=== PATIENT | male | born 1980 | race Caucasian/White ===

== ENCOUNTER 2017-09-17 16:21 | Outpatient (RCR) | payer BC ==
[~2017-09-17 16:21] MED LIST: BISO1TAB4 PO
[2017-09-17 17:50] LABS: SEMEN VOLUME 4.4 ML (1.5-5.0)
== END 2017-09-21 | disposition home or self-care (01) ==
LOC: LAB 16:21
PROVIDERS: ATTEND Obstetrics & Gynecology
DX: Z31.41 Encounter for fertility testing (principal)
CPT/HCPCS: 89320

== ENCOUNTER 2018-01-16 09:43 | Emergency (ER) | payer BC ==
[~2018-01-16] VITALS: Ht 167.6 cm; Wt 86.2 kg
--- OUTSIDE RECORDS SUMMARY | 2018-01-16 09:47 | XMS REPORT | Continuity of Care Document ---
Author Author [facility] Organization [facility] Address Unknown Phone Unavailable Allergies Active Description Code Type Severity Reaction Onset Reported/Identified Relationship to Patient Clinical Status Yes LISINOPR LISINOPR Unknown HIVES,SWELLING 03/13/2013 Medications There is no data. Problems Date Dx Coded Attending Type Code Diagnosis Diagnosed By 03/13/2013 MARCEL FLORES MD Ot 401.9 HYPERTENSION NOS 03/13/2013 MARCEL FLORES MD Ot 530.81 ESOPHAGEAL REFLUX 03/13/2013 MARCEL FLORES MD Ot 995.1 ANGIONEUROTIC EDEMA 09/21/2017 REBECA SPENCE DO Ot Z31.41 ENCOUNTER FOR FERTILITY TESTING 10/11/2017 REBECA SPENCE DO Ot Z31.41 ENCOUNTER FOR FERTILITY TESTING 11/22/2017 REBECA SPENCE DO Ot Z31.41 ENCOUNTER FOR FERTILITY TESTING Procedures There is no data. Results There is no data. Encounters ACCT No. Visit Date/Time Discharge Status Pt. Type Provider Facility Loc./Unit Complaint [id number] 11/22/2017 00:27:00 11/22/2017 23:59:59 CLS Preadmit REBECA SPENCE DO [facility] LAB Z31.41 [id number] 09/17/2017 16:21:00 09/21/2017 00:01:00 DIS Outpatient REBECA SPENCE DO [facility] LAB Z31.41 [id number] 03/13/2013 00:25:00 03/13/2013 09:15:00 DIS Inpatient MARCEL FLORES MD [facility] 4TH ANGIOEDEMA AND IDIOPATHIC HIVES
[2018-01-16] MEDS ORDERED: OMEP20CA12 (09:56)
[2018-01-16] MEDS ORDERED: LIDOCAINE 2% VISCOUS 15 ML UDC PO ONE (10:00)
[2018-01-16] MEDS ORDERED: ANTACID SUSP 30 ML UDC (MYLANTA) PO ONE (10:00)
--- NOTE | 2018-01-16 10:50 | ED General ---
General Chief Complaint: Chest Wall/Rib Pain Stated Complaint: CHEST PAIN Nursing Triage Note: TO ROOM FOR LAST SEVERAL DAYS HAS HAD PAIN IN THE EPIGASTRIC AREA REPORTS IT IS INTERMITTEN AT TIMES FEELING LIKE HE HAS A KNOT IN HIS THROAT Nursing Sepsis Screen: No Definite Risk Source of Information: Patient Exam Limitations: No Limitations History of Present Illness Date Seen by Provider: Jan 16, 2018 Time Seen by Provider: 09:47 Initial Comments This 37 year old gentleman presents to the emergency room with 2-3 days of central chest discomfort. It is intermittent and sharp just left of the sternum. He also has a generalized discomfort as well as a feeling of lump in the throat. Drinking water improves the sensation of lump in the throat. Symptoms seem to be worse in the morning right after he wakes up. He denies any nausea, vomiting, shortness of breath, or lightheadedness. He does have some problems with anxiousness and this pain is making his anxiousness worse. He rarely drinks alcohol and does not smoke. He is a little hypertensive this morning but is late on his blood pressure medication because he slept in. He does have a history of significant gastroesophageal reflux. If he skips a few days of omeprazole his symptoms become severe. Allergies and Home Medications Allergies Uncoded Allergies: LISINOPR (Allergy, Unknown, HIVES,SWELLING, 03/13/13) Home Medications Bisoprol/Hydrochlorothiazide 1 Tab Tablet, 1 TAB PO DAILY Prescribed by: WILLIAM MONDRAGON on 03/13/13 0859 Omeprazole 20 Mg Tablet.dr, 20 MG PO BID Prescribed by: SHARYN DELGADO on 01/16/18 1051 Patient Home Medication List Home Medication List Reviewed: Yes Review of Systems Review of Systems Constitutional: no symptoms reported EENTM: see HPI Respiratory: no symptoms reported Cardiovascular: no symptoms reported Gastrointestinal: see HPI Genitourinary: no symptoms reported Musculoskeletal: no symptoms reported Skin: no symptoms reported Psychiatric/Neurological: No Symptoms Reported Hematologic/Lymphatic: No Symptoms Reported Immunological/Allergic: no symptoms reported Past Sxuauhe-Ahvpnr-Xdetyo Hx Patient Social History Alcohol Use: Occasionally Uses Recreational Drug Use: No Smoking Status: Never a Smoker Recent Foreign Travel: No Contact w/Someone Who Travel: No Recent Infectious Disease Expo: No Past Medical History Surgeries: Yes (l wrist galglion cyst removal) Tonsillectomy Respiratory: No Cardiac: Yes Hypertension Neurological: No Reproductive Disorders: No Sexually Transmitted Disease: No HIV/AIDS: No Gastrointestinal: Yes Gastroesophageal Reflux Musculoskeletal: Yes Endocrine: No Cancer: No Psychosocial: No Integumentary: Yes (HIVES) Blood Disorders: No Family Medical History Family history: Cardiovascular disease 03 FATHER Heart disease 03 FATHER History of - disorder 03 MOTHER (GETS AN INFUSION MONTHLY TO BOOST IMMUNE SYSTEM.) Myocardial infarction 03 FATHER ( AT AGE 54.) Physical Exam Vital Signs Vital Signs - First Documented 01/16/18 09:46 Temp 98.1 Pulse 82 Resp 18 B/P (MAP) 140/101 (114) Pulse Ox 98 O2 Delivery Room Air Capillary Refill : Less Than 3 Seconds Height, Weight, BMI Height: 5'6.00" Weight: 190lbs. oz. 86.829158jg; BMI Method:Stated General Appearance: No Apparent Distress, WD/WN HEENT: PERRL/EOMI, Normal ENT Inspection, Pharynx Normal Neck: Normal Inspection Respiratory: Chest Non Tender, Lungs Clear, Normal Breath Sounds, No Accessory Muscle Use, No Respiratory Distress Cardiovascular: Regular Rate, Rhythm, No Edema, No Murmur Gastrointestinal: Normal Bowel Sounds, Soft, Tenderness (very slight tenderness in the epigastrium) Extremity: Normal Inspection, No Calf Tenderness, No Pedal Edema Neurologic/Psychiatric: Alert, Oriented x3, No Motor/Sensory Deficits, Normal Mood/Affect, ski maker II-XII Norm as Tested Skin: Normal Color, Warm/Dry Progress/Results/Core Measures Suspected Sepsis Recent Fever Within 48 Hours: No Infection Criteria Present: None New/Unexplained Altered Menta: No Sepsis Screen: No Definite Risk SIRS Temperature:98.1 Pulse: 82 Respiratory Rate: 18 Blood Pressure 140 /101 Mean: 114 Results/Orders My Orders Orders - SHARYN ROCHA MD Lidocaine 2% Viscous 15 Ml (Xylocaine Vi (01/16/18 10:00) Antacid Suspension (Mylanta Suspension (01/16/18 10:00) Medications Given in ED Current Medications Medications Dose Ordered Sig/Kaley Route Start Time Stop Time Status Last Admin Dose Admin Al Hydrox/Mg Hydrox/Simethicone 30 ml ONCE ONCE PO 01/16/18 10:00 01/16/18 10:01 DC 01/16/18 10:05 30 ML Lidocaine HCl 15 ml ONCE ONCE PO 01/16/18 10:00 01/16/18 10:01 DC 01/16/18 10:06 15 ML Vital Signs/I&O 01/16/18 09:46 Temp 98.1 Pulse 82 Resp 18 B/P (MAP) 140/101 (114) Pulse Ox 98 O2 Delivery Room Air Capillary Refill : Less Than 3 Seconds Blood Pressure Mean: 114 Progress Note : Progress Note GI cocktail eliminated his chest pain. The lump feeling in the throat persists. I discussed options with the patient. His symptoms seem to be most consistent with exacerbation of esophageal reflux. He is going to increase his omeprazole, try weight loss, observe dietary changes, and other non-medical interventions to work on acid reflux. We discussed referral to a surgeon or box lidder for endoscopy. I encouraged him strongly to pursue this. I also encouraged him to return to emergency room if he has worsening symptoms, especially if he develops new symptoms such as shortness of breath, vomiting, diaphoresis, etc. Departure Impression Primary Impression: Atypical chest pain Additional Impressions: Gastroesophageal reflux Qualified Codes: K21.9 - Gastro-esophageal reflux disease without esophagitis Laryngopharyngeal reflux (LPR) Disposition: HOME, SELF-CARE Condition: Improved Departure-Patient Inst. Decision time for Depature: 10:46 Referrals: TIP TINOCO MD (PCP/Family) Primary Care Physician Patient Instructions: Acid Reflux (Gastroesophageal Reflux Disease), Adult (DC) , Chest Pain (DC) Add. Discharge Instructions: You may increase your omeprazole to 20 mg twice daily for the next couple weeks. Also consider adding an H2 nemo such as Pepcid (famotidine) or Zantac ( ranitidine). For acute flareups, you may use Tums as well. Avoid the following: Eating large meals, eating close to bedtime, caffeine, carbonation, citrus fruits and juices, other acidic foods, tomato products, tobacco, alcohol, chocolate, mints, spicy foods, fatty or greasy foods, NSAID medications such as ibuprofen or naproxen, or anything else you know irritates your stomach. Avoid wearing tight fitting clothes that apply pressure to the abdomen. Work toward losing abdominal weight to reduce pressure on your stomach. Consider elevating the head of your bed at night to allow gravity to work against acid reflux. Follow-up with your primary care provider as soon as possible and discuss referral for endoscopy. Return to care if you have worsening symptoms or if you develop additional symptoms such as shortness of breath, lightheadedness, sweating, vomiting, etc. All discharge instructions reviewed with patient and/or family. Voiced understanding. Scripts Omeprazole (Omeprazole) 20 Mg Tablet. 20 MG PO BID, #60 TAB Prov: SHARYN ROCHA MD 01/16/18 SHARYN ROCHA MD Jan 16, 2018 10:50
[2018-01-16] MEDS ORDERED: OMEP20TA7 PO (10:51)
[2018-01-16 10:59] VITALS: BP 130/89
== END 2018-01-16 10:58 | disposition home or self-care (01) ==
LOC: EDUNIT# 09:43 → ER 09:44
DX: R07.89 Other chest pain (principal); K21.9 Gastro-esophageal reflux disease without esophagitis; I10 Essential (primary) hypertension; Z82.49 Family history of ischemic heart disease and other diseases of the circulatory system; Z90.89 Acquired absence of other organs
CPT/HCPCS: 99283

== ENCOUNTER 2021-01-02 20:12 | Emergency (ER) | payer BC ==
[~2021-01-02] VITALS: Ht 67 cm; Wt 83.9 kg
[~2021-01-02 20:12] MED LIST changes: +OMEP20CA18; +OMEP20TA7 PO
--- NOTE | 2021-01-02 20:25 | ED General ---
General Stated Complaint: BODY RASH Source of Information: Patient Exam Limitations: No Limitations (ERON DHALIWAL APRN) History of Present Illness Date Seen by Provider: Jan 02, 2021 Time Seen by Provider: 20:23 Initial Comments To ER with reports of a diffuse rash that started this afternoon. He suspects it might be related to lemon pepper. He has had similar symptoms with exposure to lemon pepper before and he had some chips from [employer] that were lemon pepper flavored today. However he has never had a rash previously. He now has diffuse urticarial type rash. His hands are swollen and itchy, his face is red and burning and swollen. His tongue feels weird but he is breathing okay. He has nausea but no diarrhea and no abdominal cramping. He has taken 75 mg of Benadryl at home over the course of the past 2 hours. Timing/Duration: 1-2 Days Severity: Moderate (ERON DHALIWAL APRN) Allergies and Home Medications Allergies Uncoded Allergies: LISINOPR (Allergy, Unknown, HIVES,SWELLING, 03/13/13) Patient Home Medication List Home Medication List Reviewed: Yes (ERON DHALIWAL APRN) Bisoprol/Hydrochlorothiazide (Ziac 2.5-6.25 Mg Tablet) 1 Tab Tablet, 1 TAB PO DAILY Prescribed by: WILLIAM MONDRAGON on 03/13/13 0859 Epinephrine (Epipen 2-Ravi) 0.3 Mg/0.3 Ml Auto.injct, 0.3 MG IJ PRN PRN for allergic reaction Prescribed by: ERON DHALIWAL on 01/02/212027 Omeprazole (Omeprazole) 20 Mg Capsule., (Reported) Entered as Reported by: LORY EMERSON on 01/16/18 0956 Omeprazole (Omeprazole) 20 Mg Tablet.dr 20 MG PO BID Prescribed by: SHARYN DELGADO on 01/16/18 1051 Prednisone (Prednisone) 20 Mg Tab, 40 MG PO DAILY Prescribed by: ERON DHALIWAL on 01/02/212037 Review of Systems Review of Systems Constitutional: see HPI EENTM: see HPI Respiratory: see HPI Cardiovascular: no symptoms reported Genitourinary: no symptoms reported Musculoskeletal: no symptoms reported Skin: no symptoms reported Psychiatric/Neurological: No Symptoms Reported Hematologic/Lymphatic: No Symptoms Reported Immunological/Allergic: no symptoms reported (ERON DHALIWAL APRN) Past Cpslyhi-Icclry-Lluslx Hx Past Medical History Surgeries: Yes (l wrist galglion cyst removal) Tonsillectomy Respiratory: No Cardiac: Yes Hypertension Neurological: No Reproductive Disorders: No Sexually Transmitted Disease: No HIV/AIDS: No Gastrointestinal: Yes Gastroesophageal Reflux Musculoskeletal: Yes Endocrine: No Cancer: No Psychosocial: No Integumentary: Yes (HIVES) Blood Disorders: No (ERON DHALIWAL APRN) Family Medical History Family history: Cardiovascular disease 03 FATHER Heart disease 03 FATHER History of - disorder 03 MOTHER (GETS AN INFUSION MONTHLY TO BOOST IMMUNE SYSTEM.) Myocardial infarction 03 FATHER ( AT AGE 54.) Physical Exam Vital Signs Vital Signs - First Documented (DRAKE GUERRERO DO) Vital Signs Capillary Refill : (ERON DHALIWAL APRN) Height, Weight, BMI Height: 5'6.00" Weight: 190lbs. oz. 86.601291bz; BMI Method:Stated General Appearance: No Apparent Distress, WD/WN Eyes: Bilateral Eye Normal Inspection, Bilateral Eye PERRL, Bilateral Eye EOMI HEENT: PERRL/EOMI, TMs Normal, Normal ENT Inspection, Pharynx Normal Neck: Full Range of Motion, Normal Inspection Respiratory: No Accessory Muscle Use, No Respiratory Distress Gastrointestinal: Non Tender, Soft Extremity: Normal Capillary Refill, Normal Inspection Neurologic/Psychiatric: Alert, Oriented x3 Skin: Normal Color, Warm/Dry, Rash, Other (Hives about the torso, erythema about the face and hands. His fingers are swollen he is unable to get his ring off as he typically would be able to. No oropharyngeal edema. Lungs are clear without wheezing) (ERON DHALIWAL APRN) Progress/Results/Core Measures Suspected Sepsis SIRS Temperature: Pulse: Respiratory Rate: Blood Pressure / Mean: (ERON DHALIWAL APRN) Results/Orders Medications Given in ED Current Medications Medications Dose Ordered Sig/Kaley Route Start Time Stop Time Status Last Admin Dose Admin Epinephrine HCl 0.15 mg ONCE ONCE IM 01/02/21 20:30 01/02/21 20:31 DC 01/02/21 20:40 0.15 MG Famotidine 20 mg ONCE ONCE IVP 01/02/21 20:30 01/02/21 20:31 DC 01/02/21 20:35 20 MG Methylprednisolone Sodium Succinate 125 mg ONCE ONCE IVP 01/02/21 20:30 01/02/21 20:31 DC 01/02/21 20:35 125 MG Ondansetron HCl 4 mg ONCE ONCE IVP 01/02/21 20:45 01/02/21 20:46 DC 01/02/21 20:43 4 MG (DRAKE GUERRERO DO) Vital Signs/I&O 01/02/21 01/02/21 01/02/21 20:20 20:20 21:39 Temp 37.0 37.0 Pulse 87 87 Resp 20 20 B/P (MAP) 148/100 (116) 148/100 Pulse Ox 97 97 O2 Delivery Room Air Room Air Room Air (DRAKE GUERRERO DO) Vital Signs/I&O Capillary Refill : (ERON DHALIWAL APRN) Departure Communication (Admissions) 2123-rash is all but gone. He states that his hands feel still a little swollen but much less itchy, he states he no longer has burning to his face. He overall feels much better and is ready to go home. (ERON DHALIWAL APRN) Impression Primary Impression: Anaphylaxis Disposition: 01 HOME, SELF-CARE Condition: Stable Departure-Patient Inst. Decision time for Depature: 20:25 (ERON DHALIWAL APRN) Referrals: TIP TINOCO MD (PCP/Family) Primary Care Physician Patient Instructions: Allergic Reaction ED Add. Discharge Instructions: 1. Benadryl 1 tablet every 4 hours. Steroids as directed. Return to ER for any concerns. Scripts Prednisone (Prednisone) 20 Mg Tab 40 MG PO DAILY, #4 TAB 0 Refills Prov: ERON DHALIWAL APRN 01/02/21 Epinephrine (Epipen 2-Ravi) 0.3 Mg/0.3 Ml Auto.injct 0.3 MG IJ PRN PRN for allergic reaction, #1 EACH Prov: ERON DHALIWAL APRN 01/02/21 Work/School Note: Work Release Form Date Seen in the Emergency Department: Jan 02, 2021 Return to Work: Jan 04, 2021 ATTENDING PHYSICIAN NOTE: I WAS PHYSICALLY PRESENT ER PHYSICIAN WHEN THIS PATIENT WAS IN ER, BUT I WAS NOT INVOLVED IN ANY DECISION MAKING OR ANY CARE OF THIS PATIENT. (DRAKE GUERRERO DO) ERON DHALIWAL APRN Jan 02, 2021 20:25 DRAKE GUERRERO DO Jan 03, 2021 05:19
[2021-01-02] MEDS ORDERED: EPIN0.3P3 IJ (20:28)
[2021-01-02] MEDS ORDERED: methylPREDNISolone 125 MG (Solu-MEDROL) VIAL IVP ONE (20:30)
[2021-01-02] MEDS ORDERED: FAMOTIDINE 20MG/2ML IV (PEPCID) IVP ONE (20:30)
[2021-01-02] MEDS ORDERED: EPINEPHrine INJECTION 1 MG/ML AMP IM ONE (20:30)
[2021-01-02] MEDS ORDERED: PRD20T PO (20:38)
[2021-01-02] MEDS ORDERED: ONDANSETRON 4 MG/2 ML (SDV) Z0FRAN IVP ONE (20:45)
[2021-01-02 21:39] VITALS: BP 148/100
== END 2021-01-02 21:39 | disposition home or self-care (01) ==
LOC: EDUNIT# 20:12 → ER 20:14
DX: T78.2XXA Anaphylactic shock, unspecified, initial encounter (principal); I10 Essential (primary) hypertension; K21.9 Gastro-esophageal reflux disease without esophagitis; Z79.899 Other long term (current) drug therapy